=== PATIENT | female | born 1985 | race African-American/Black ===

== ENCOUNTER 2016-05-28 17:33 | Emergency (ER) | payer OTHER ==
[~2016-05-28] VITALS: Ht 170.2 cm; Wt 90.5 kg
[~2016-05-28 17:33] MED LIST: NO MEDS
[2016-05-28 20:21] LABS: APPEARANCE,URINE CLOUDY (CLEAR); GLUCOSE, URINE (UA) NEGATIVE (NEGATIVE); KETONES,URINE NEGATIVE (NEGATIVE); LEUKOCYTE ESTERASE ,URINE SMALL (NEGATIVE); OCCULT BLOOD,URINE NEGATIVE (NEGATIVE); PROTEIN,URINE NEGATIVE (NEGATIVE)
[2016-05-28 20:37] LABS: ADD UA MICROSCOPIC YES
[2016-05-28 20:44] LABS: RBC,URINE None Seen /HPF (0-2); SQUAMOUS EPITHELIAL CELL,UR Moderate /LPF (None Seen); WBC,URINE 0-2 /HPF (0-5)
[2016-05-28 21:27] VITALS: BP 177/124
[2016-05-28] MEDS ORDERED: HYDROCODONE/ACETAMINOPHEN 5-325 MG TABLET PO ONE (21:30)
[2016-05-28] MEDS ORDERED: KETOROLAC TROMETHAMINE 60 MG/2 ML VIAL IM ONE (21:30)
[2016-05-28] MEDS ORDERED: CYCLOBENZAPRINE HCL 10 MG TABLET PO ONE (21:30)
== END 2016-05-28 21:58 | disposition home or self-care (01) ==
LOC: EMS 17:35
DX: M54.9 Dorsalgia, unspecified (principal)
CPT/HCPCS: 81001; 84703; 87086; 96372; 99284; J1885

== ENCOUNTER 2018-08-28 11:05 | Emergency (ER) | payer OTHER ==
[~2018-08-28] VITALS: Ht 162.6 cm; Wt 84.1 kg
[2018-08-28 11:40] VITALS: BP 140/84
[2018-08-28] MEDS ORDERED: FERR-82 PO (11:46)
[2018-08-28] MEDS ORDERED: KETOROLAC TROMETHAMINE 10 MG TABLET PO ONE (12:15)
== END 2018-08-28 12:34 | disposition home or self-care (01) ==
LOC: EMS 11:06
DX: K02.9 Dental caries, unspecified (principal)